=== PATIENT | female | born 1985 | race Caucasian/White ===

== ENCOUNTER 2018-02-07 05:03 | Emergency (ER) | payer OTHER ==
[2018-02-07 08:32] LABS: ADD UMIC YES; UR ASCORBIC ACID NEGATIVE (NEGATIVE); UR BILIRUBIN (Dip) NEGATIVE (NEGATIVE); UR BLOOD (Dip) 1+ mg/dL (NEGATIVE); UR CLARITY CLEAR (CLEAR); UR COLOR YELLOW (YELLOW); UR GLUCOSE (Dip) NEGATIVE (NEGATIVE); UR KETONES (Dip) NEGATIVE (NEGATIVE); UR LEUKOCYTE ESTERASE (Dip) 1+ Leu/ul (NEGATIVE); UR NITRITE (Dip) NEGATIVE (NEGATIVE); UR RBC 1 /HPF (0-5); UR SPECIFIC GRAVITY (Dip) 1.026 (1.003-1.030); UR SQUAMOUS EPITHELIAL CELL FEW /HPF (FEW); UR TOTAL PROTEIN (Dip) NEGATIVE (NEGATIVE); UR UROBILINOGEN (Dip) NEGATIVE (NEGATIVE); UR WBC 6 /HPF (0-5)
[2018-02-07] MEDS: SOD CHLORIDE 0.9% 1,000 ML IV (08:37)
[2018-02-07 08:38] LABS: ADD MAN DIFF? NO
[2018-02-07 08:45] LABS: BASOPHILS % 0.3 % (0.0-2.0); EOSINOPHILS # 0.2 10^3/ul (0.0-0.5); EOSINOPHILS % 1.9 % (0.0-7.0); HEMATOCRIT 38.3 % (37.0-47.0); HEMOGLOBIN 12.4 g/dl (12.0-16.0); LYMPHOCYTES # 1.9 10^3/ul (0.8-2.9); LYMPHOCYTES % 17.5 % (15.0-51.0); MEAN CORPUSCULAR HEMOGLOBIN 25.2 pg (29.0-33.0); MEAN CORPUSCULAR HGB CONC 32.4 g/dl (32.0-37.0); MEAN CORPUSCULAR VOLUME 77.8 fl (82.0-101.0); MEAN PLATELET VOLUME 12.6 fl (7.4-10.4); MONOCYTE # 0.4 10^3/ul (0.3-0.9); MONOCYTES % 3.5 % (0.0-11.0); NEUTROPHIL # 8.4 10^3/ul (1.6-7.5); NEUTROPHILS % 76.5 % (39.0-77.0); PLATELET COUNT 238 10^3/UL (140-415); RED BLOOD COUNT 4.92 10^6/ul (4.20-5.40); RED CELL DISTRIBUTION WIDTH 14.5 % (11.5-14.5)
[2018-02-07 09:03] LABS: ALANINE AMINOTRANSFERASE 27 IU/L (13-69); ALBUMIN 4.4 g/dl (3.3-4.9); ALBUMIN/GLOBULIN RATIO 1.18; ALKALINE PHOSPHATASE 95 IU/L (42-121); ANION GAP 16 (8-16); ASPARTATE AMINO TRANSFERASE 19 IU/L (15-46); BILIRUBIN,INDIRECT 0.1 mg/dl (0-1.1); BILIRUBIN,TOTAL 0.1 mg/dl (0.2-1.3); BLOOD UREA NITROGEN 19 mg/dl (7-20); CALCIUM 9.4 mg/dl (8.4-10.2); CARBON DIOXIDE 25 mmol/L (21-31); CHLORIDE 105 mmol/L (97-110); CREATININE 0.76 mg/dl (0.44-1.00); GLUCOSE 113 mg/dl (70-220); LIPASE 55 U/L (23-300); POTASSIUM 4.4 mmol/L (3.5-5.1); SODIUM 142 mmol/L (135-144); TOTAL PROTEIN 8.1 g/dl (6.1-8.1)
[2018-02-07] MEDS: KETOROLAC 30 MG INJ IV (09:06)
[2018-02-07] MEDS: ONDANSETRON 4 MG INJ IV (09:06)
== END 2018-02-07 10:02 | disposition home or self-care (01) ==
LOC: FTE 05:03
DX: K80.20 Calculus of gallbladder without cholecystitis without obstruction (principal); J45.909 Unspecified asthma, uncomplicated
CPT/HCPCS: 36415; 76705; 80053; 81001; 81025; 83690; 85025; 96374; 96375; 99285-25

== ENCOUNTER 2019-07-24 12:22 | Emergency (ER) | payer MEDICAID, OTHER | END 2019-07-24 14:43 | disposition home or self-care (01) | LOC: E/R 14:43 | DX: O99.511 Diseases of the respiratory system complicating pregnancy, first trimester (principal); J45.901 Unspecified asthma with (acute) exacerbation; Z3A.10 10 weeks gestation of pregnancy | CPT/HCPCS: 99283; Z7502 ==

== ENCOUNTER 2019-07-27 16:21 | Emergency (ER) | payer MEDICAID | END 2019-07-27 18:04 | disposition home or self-care (01) | LOC: FTE 16:21 → E/R 18:04 | DX: O26.891 Other specified pregnancy related conditions, first trimester (principal); O99.511 Diseases of the respiratory system complicating pregnancy, first trimester; J45.909 Unspecified asthma, uncomplicated; R11.0 Nausea; Z3A.01 Less than 8 weeks gestation of pregnancy | CPT/HCPCS: 99283; Z7502 ==